=== PATIENT | female | born 1950 | race African-American/Black ===

== ENCOUNTER 2021-09-04 17:01 | Emergency (ER) | payer OTHER, MEDICAID ==
[~2021-09-04] VITALS: Ht 170.2 cm; Wt 71.0 kg
[2021-09-04] MEDS ORDERED: IBUPROFEN 400MG TABLET PO ONE (18:15)
[2021-09-04 18:45] VITALS: BP 148/85
== END 2021-09-04 21:14 | disposition home or self-care (01) ==
LOC: ER 17:01
DX: S92.514A Nondisplaced fracture of proximal phalanx of right lesser toe(s), initial encounter for closed fracture (principal); I10 Essential (primary) hypertension; Z85.048 Personal history of other malignant neoplasm of rectum, rectosigmoid junction, and anus; Z98.890 Other specified postprocedural states; Z88.2 Allergy status to sulfonamides; Z88.5 Allergy status to narcotic agent; Z88.0 Allergy status to penicillin; W22.8XXA Striking against or struck by other objects, initial encounter; Y93.89 Activity, other specified; Y92.89 Other specified places as the place of occurrence of the external cause
CPT/HCPCS: 29515; 73630; 99283

== ENCOUNTER 2021-09-20 18:27 | Emergency (ER) | payer MEDICARE, MEDICAID ==
[~2021-09-20] VITALS: Ht 167.6 cm; Wt 77.0 kg
[2021-09-20 20:03] VITALS: BP 130/78
== END 2021-09-20 20:16 | disposition home or self-care (01) ==
LOC: ER 18:27
DX: S92.591A Other fracture of right lesser toe(s), initial encounter for closed fracture (principal); X58.XXXA Exposure to other specified factors, initial encounter; Y93.89 Activity, other specified; Y92.89 Other specified places as the place of occurrence of the external cause; Y99.8 Other external cause status; I10 Essential (primary) hypertension; Z88.5 Allergy status to narcotic agent
CPT/HCPCS: 73630; 99283